=== PATIENT | female | born 1950 | race Caucasian/White ===

== ENCOUNTER → 2023-09-02 | Outpatient (CLI) | payer MEDICARE ==
--- NOTE | 2023-09-02 20:58 | XR ---
EXAMINATION TYPE: XR finger LT DATE OF EXAM: 09/02/2023 Comparison: None TECHNIQUE: 2 views cone-down onto the index finger Clinical History: 73-year-old female pain after [id number] LIF INJURY Findings: There is a 7 mm long splinter of metal coursing in the AP dimension at the tip of the index finger so ft tissues probably abutting the underlying tuft total bone. Moderate degenerative change DIP joint. Advanced osteoarthritic change first CMC joint at the base of the thumb. Impression: A 7 mm long metal splinter embedded within the soft tissues at the tip of the index finger. Probably abutting the underlying bone.
== END | disposition home or self-care (01) ==
LOC: RADXRYALE 13:15
PROVIDERS: ATTEND Internal Medicine
DX: S61.241A Puncture wound with foreign body of left index finger without damage to nail, initial encounter (principal)

== ENCOUNTER 2023-09-08 12:38 | Day surgery (SDC) | payer MEDICARE ==
--- NOTE | 2023-09-07 12:33 | P.HPOR ---
History of Present Illness H&P Date: 09/07/23 Subjective: This is a 73 year old female that presents today for initial evaluation regarding a left index finger injury that occurred on 09/02/2023 when she was using a sewing machine and the sewing needle pierced the dorsal aspect of the finger, going through the nail plate to the bone and then broke off. She was seen at her primary care physician's office and then referred to orthopedics for further evaluation. She states she can feel the tip in the soft tissue of the fingertip. She denies any numbness or tingling. Physical Examination: LUE: AIN/PIN/Radial/Ulnar/Median motor intact. Radial/Ulnar/Median SILT. 2+/4 Radial/Ulnar pulses palpated. 5/5 APB, 5/5 FDI. Negative Finkelsteins, negative CMC grind, negative Durkan's compression. Entry point wound seen through the nail plate on the dorsal aspect of the index finger. Imaging: X-Rays of the left index finger reviewed from 09/02/23 demonstrates a 7mm needle located in the subcutaneous tissues of the volar pulp of the left small finger that penetrates the volar and dorsal cortex of the tip of the distal phalanx. Eye of the needle is lodged in the distal phalanx Impression: 1.) Left index finger foreign body. Plan: Diagnosis and treatment options were discussed with the patient. She would like to proceed with left index foreign body removal with potential nail plate removal. Risks and benefits of surgery including bleeding, infection, damage to surrounding tissue, need for further surgery, residual numbness were discussed and the patient wished to go forward with surgery. The patient was agreeable with this plan. CC: Tierra Negrete M.D. -Dallas Rocha DO Orthopedic Hand/Upper Extremity Surgeon Past Medical History Past Medical History: Hyperlipidemia, Hypertension Additional Past Medical History / Comment(s): Takotsubo syndrome, gets eye injections every 2 months for macular degeneration History of Any Multi-Drug Resistant Organisms: None Reported Past Surgical History: Appendectomy, Heart Catheterization, Orthopedic Surgery, Tubal Ligation Additional Past Surgical History / Comment(s): lft shoulder repair, Past Anesthesia/Blood Transfusion Reactions: No Reported Reaction Smoking Status: Never smoker - Past Family History Mother Family Medical History: No Reported History Medications and Allergies Home Medications Medication Instructions Recorded Confirmed Type Sertraline [Zoloft] 100 mg PO DAILY 04/22/15 09/07/23 History Simvastatin 1 tab PO DAILY 04/22/15 09/07/23 History Losartan Potassium 50 mg PO DAILY 09/07/23 09/07/23 History Sulfamethoxazole/Trimethoprim 1 tab PO Q12H 09/07/23 09/07/23 History [Sulfamethoxazole-Tmp Ds Tablet] Allergies Allergy/AdvReac Type Severity Reaction Status Date / Time metal Allergy Rash/Hives Uncoded 09/07/23 08:55 Physical Examination Osteopathic Statement: *. No significant issues noted on an osteopathic structural exam other than those noted in the History and Physical/Consult.
[~2023-09-08 12:38] MED LIST: HYDROmorphone 0.5 MG/0.5 ML SYRINGE IVP PRN; LACTATED RINGERS 1,000 ML IV SCH
[2023-09-08 13:46] VITALS: RESP 16; TEMP 97
[2023-09-08] MEDS ORDERED: fentaNYL (PF) 50 MCG/ML 2 ML AMP ONE (14:02)
[2023-09-08] MEDS ORDERED: MIDAZOLAM 2 MG/2 ML VIAL ONE (14:02)
[2023-09-08] MEDS ORDERED: PROPOFOL 10 MG/ML 20 ML VIAL IV ONE (14:02)
[2023-09-08] MEDS ORDERED: BUPIVACAINE (PF) 0.5% 30 ML VIAL SQ ONE (14:09)
[2023-09-08] MEDS ORDERED: LIDOCAINE 1% INJ 10MG/ML (20 ML MDV) SQ ONE (14:09)
--- NOTE | 2023-09-08 14:22 | P.OP ---
Date of Procedure: 09/08/23 Preoperative Diagnosis: Left index finger foreign body Postoperative Diagnosis: Left index finger foreign body Procedure(s) Performed: Left index finger foreign body excision from bone. Anesthesia: MAC Surgeon: Dallas Rocha Anaesthesiologist #1: Paul Zuniga Estimated Blood Loss (ml): 0 Pathology: none sent Condition: stable Disposition: PACU Description of Procedure: This is a 73 year old female who presents today for a left index finger foreign body removal from her distal phalanx bone. Risks and benefits of surgery were discussed with the patient including bleeding, damage to surrounding tissue, infection, need for further surgery as well as risks of anesthesia including pulmonary embolism and even and the patient wished to proceed with surgical intervention. The patient was seen in the pre-operative area by myself. Consent and H&P were completed and updated. The correct extremity was marked in the pre-operative area by myself and all other questions were answered. Operative Narrative: The patient was brought to the operating room by the department of anesthesia. They remained on the portable stretcher and a rolling hand table was brought to the side of the operative extremity. Pre-operative time out was p erformed indicating the correct patient, procedure and laterality. All in the room agreed. Pre-operative antibiotics were given prior to skin incision. A 50:50 mixture of 0.5% bupivicaine and 1% lidocaine was used to perform a digital block of the left index finger. The patient was then drifted off to sleep by the department of anesthesia. A nonsterile tourniquet was then applied to the operative extremity and the left upper extremity was then prepped and draped in normal sterile fashion. The operative extremity was the exsanguinated with an esmarch bandage and the tourniquet was inflated to 250mmHg. Longitudinal incison was made on the volar aspect of the pulp of the left index finger. Blunt dissection was taken down through subcutaneous tissues. The tip of the sewing needle was then identified and was able to be successfully excised with longitudinal tracture with a hemostat without complication. The wound was then closed with 4-0 nylon suture. Soft dressing consisting of adaptic, 4x4s and loosely applied coban was applied. Tourniquet was let down and the hand had immediate perfusion. Paul BUITRAGO was present to assist in the procedure. The patient was then woken by the department of anesthesia and transferred to PACU in stable condition. Dallas Rocha D.O. Orthopedic Hand/Upper Extremity Surgeon
[2023-09-08 15:05] VITALS: BP 127/72; PULSE 68
== END 2023-09-08 15:02 | disposition home or self-care (01) ==
LOC: OR 12:38
PROVIDERS: ATTEND Orthopaedic Surgery Hand Surgery
DX: S60.452A Superficial foreign body of right middle finger, initial encounter (principal); I10 Essential (primary) hypertension; E78.5 Hyperlipidemia, unspecified; Z90.49 Acquired absence of other specified parts of digestive tract; X58.XXXA Exposure to other specified factors, initial encounter; Z98.51 Tubal ligation status; Z98.890 Other specified postprocedural states; Z79.899 Other long term (current) drug therapy
CPT/HCPCS: 20520; J2250; J0690; J2001; J3010; J2704; J0665

== ENCOUNTER 2024-04-25 16:21 | Emergency (ER) | payer MEDICARE ==
[2024-04-25 16:26] VITALS: RESP 16
--- NOTE | 2024-04-25 17:15 | ED ---
Chest Pain HPI - General Source: patient, family, RN notes reviewed Mode of arrival: wheelchair Limitations: no limitations <Lillian Barrios - Last Filed: 04/25/24 17:13> - History of Present Illness MD Complaint: chest pain Onset/Timin -: days(s) Onset: during rest Pain Location: substernal Pain Radiation: none Severity: moderate Quality: dull Consistency: intermittent Improves With: nothing Worsens With: nothing Treatments Prior to Arrival: none <Bladimir Chavez - Last Filed: 05/09/24 07:21> - General Chief Complaint: Chest Pain Stated Complaint: Chest Pain,SOB Time Seen by Provider: 04/25/24 16:40 - History of Present Illness Initial Comments: Quick Note- this is a 73-year-old female presents emergency department chief complaint of chest heaviness that is been intermittent over the past 3 days. She endorses dizziness, palpitations, and dyspnea on exertion since this time. Denies history of heart attack, stroke, clots. She states that she was diagnosed with Takotsubo cardiomyopathy in 2008. Follows with Dr[address] Correia. (Lillian Barrios) - Related Data Home Medications Medication Instructions Recorded Confirmed Sertraline [Zoloft] 100 mg PO DAILY 04/22/15 01/19/24 Simvastatin 1 tab PO DAILY 04/22/15 01/19/24 Losartan Potassium 50 mg PO DAILY 09/07/23 01/19/24 Aspirin [Adult Low Dose Aspirin EC] 81 mg PO DAILY 01/17/24 01/19/24 Vit C/E/Zn/Coppr/Lutein/Zeaxan 1 tab PO DAILY 01/17/24 01/19/24 [Preservision Areds 2 Chew Tab] Allergies Allergy/AdvReac Type Severity Reaction Status Date / Time metal Allergy Rash/Hives Uncoded 01/19/24 12:07 Review of Systems ROS Other: All systems not noted in ROS Statement are negative. <Lillian Barrios - Last Filed: 04/25/24 17:13> ROS Other: All systems not noted in ROS Statement are negative. Constitutional: Denies: fever, chills Respiratory: Denies: cough, dyspnea, wheezes, hemoptysis Cardiovascular: Reports: chest pain. Denies: palpitations, dyspnea on exertion, orthopnea, edema Gastrointestinal: Denies: abdominal pain, nausea, vomiting, diarrhea Genitourinary: Denies: dysuria, hematuria Musculoskeletal: Denies: back pain Skin: Denies: rash Neurological: Denies: headache, weakness <Bladimir Chavez - Last Filed: 05/09/24 07:21> ROS Statement: Those systems with pertinent positive or pertinent negative responses have been documented in the HPI. EKG Findings - EKG Results: EKG: interpreted by ERMD, sinus rhythm (Rate 76 bpm) - Blocks, Filion, Hypertrophy, ST Abn: AV and intraventricular conduction: left anterior fascicular block QRS axis and voltage: pulmonary disease - MD, Pacemaker, Normal: Myocardial infarction: septal MD (old age or indeterminate) <AlinesydneyBladimir - Last Filed: 05/09/24 07:21> Past Medical History Past Medical History: Eye Disorder, Hyperlipidemia, Hypertension Additional Past Medical History / Comment(s): Takotsubo syndrome, gets eye injections every 2 months for macular degeneration History of Any Multi-Drug Resistant Organisms: None Reported Past Surgical History: Appendectomy, Heart Catheterization, Orthopedic Surgery, Tubal Ligation Additional Past Surgical History / Comment(s): lft shoulder repair,colonoscopy Past Anesthesia/Blood Transfusion Reactions: No Reported Reaction Additional Past Anesthesia/Blood Transfusion Reaction / Comment(s): no blood transfusion Past Psychological History: Anxiety, Depression Smoking Status: Never smoker - Past Family History Mother Family Medical History: No Reported History <Lillian Barrios - Last Filed: 04/25/24 17:13> General Exam Limitations: no limitations <Lillian Barrios - Last Filed: 04/25/24 17:13> Limitations: no limitations General appearance: alert, in no apparent distress Head exam: Present: atraumatic, normocephalic Eye exam: Present: normal appearance. Absent: scleral icterus, conjunctival injection Neck exam: Present: normal inspection Respiratory exam: Present: normal lung sounds bilaterally. Absent: respiratory distress, wheezes, rales, rhonchi, stridor, accessory muscle use Cardiovascular Exam: Present: regular rate, normal rhythm, normal heart sounds, other (There is occasional dropped beat on auscultation). Absent: systolic murmur, diastolic murmur, rubs, gallop GI/Abdominal exam: Present: soft. Absent: distended, tenderness, guarding, rebound, rigid, mass Extremities exam: Present: normal inspection, normal capillary refill. Absent: pedal edema, calf tenderness Back exam: Present: normal inspection. Absent: CVA tenderness (R), CVA tenderness (L) Neurological exam: Present: alert Skin exam: Present: warm, dry, intact, normal color. Absent: rash <Bladimir Chavez - Last Filed: 05/09/24 07:21> - General Exam Comments Initial Comments: Visual Physical Exam Vital signs reviewed General: Well-appearing, nontoxic, no acute distress. Head: Normocephalic, atraumatic Eyes: PERRLA, EOMI ENT: Airway patent Chest: Nonlabored breathing Skin: No visual rash, normal skin tone Neuro: Alert and oriented 3 Musculoskeletal: No gross abnormalities (Lillian Barrios) Course Vital Signs 04/25/24 04/25/24 16:24 19:57 Temperature 98.7 F 98.5 F Pulse Rate 80 76 Respiratory 16 16 Rate Blood Pressure 158/84 160/73 O2 Sat by Pulse 99 99 Oximetry Chest Pain MDM <Lillian Barrios - Last Filed: 04/25/24 17:13> <Bladimir Chavez - Last Filed: 05/09/24 07:21> - MDM I completed the quick note portion of this chart signed Lillian Barrios PA-C (Lillian Barrios) The patient had chest x-ray that I interpreted as negative for acute infiltrate, pneumothorax, congestive heart failure Was pt. sent in by a medical professional or institution ([facility], MAINTENANCE SERVICE SUPERVISOR, urgent care, hospital, or correction...) When possible be specific @ -[No] Did you speak to anyone other than the patient for history (EMS, parent, family, police, friend...)? What history was obtained from this source @ -[No] Did you review nursing and triage notes (agree or disagree)? Why? @ -[I reviewed and agree with nursing and triage notes] Were old charts reviewed (outside hosp., previous admission, EMS record, old EKG, old radiological studies, urgent care reports/EKG's, correction records)? Report findings @ -[No old charts were reviewed] Differential Diagnosis (chest pain, altered mental status, abdominal pain women, abdominal pain men, vaginal bleeding, weakness, fever, dyspnea, syncope, headache, dizziness, GI bleed, back pain, seizure, CVA, palpatations, mental health, musculoskeletal)? @ -[Differential Chest Pain: Stable Angina, Unstable Angina, STEMI, NSTEMI Aortic Dissection, Pneumothorax, Musculoskeletal, Esophageal Spasm GERD, Cholecystitis, Pancreatitis, Zoster, this is not meant to be an all-inclusive list. EKG interpreted by me (3pts min.). @ -[I interpreted as above] X-rays interpreted by me (1pt min.). @ -[I interpreted as above CT interpreted by me (1pt min.). @ -[None done] U/S interpreted by me (1pt. min.). @ -[None done] What testing was considered but not performed or refused? (CT, X-rays, U/S, labs)? Why? @ -[None] What meds were considered but not given or refused? Why? @ -[None] Did you discuss the management of the patient with other professionals (professionals i.e. , PA, MAINTENANCE SERVICE SUPERVISOR, lab, RT, psych nurse, psychologist social, toolsmith, teacher, home school liaison officer, correctional case manager)? Give summary @ -[No] Was smoking cessation discussed for >3mins.? @ -[No] Was critical care preformed (if so, how long)? @ -[No] Were there social determinants of health that impacted care today? How? (Homelessness, low income, unemployed, alcoholism, drug addiction, transportation, low edu. Level, literacy, decrease access to med. care, [facility], rehab)? @ -[No] Was there de-escalation of care discussed even if they declined (Discuss DNR or withdrawal of care, Hospice)? DNR status @ -[No] What co-morbidities impacted this encounter? (DM, HTN, Smoking, COPD, CAD, Cancer, CVA, ARF, Chemo, Hep., AIDS, mental health diagnosis, sleep apnea, morbid obesity)? @ -[None] Was patient admitted / discharged? Hospital course, mention meds given and route, prescriptions, significant lab abnormalities, going to OR and other pertinent info. @ -[hospital course] Undiagnosed new problem with uncertain prognosis? @ -[No] Drug Therapy requiring intensive monitoring for toxicity (Heparin, Nitro, Insulin, Cardizem)? @ -[No] Were any procedures done? @ -[No] Diagnosis/symptom? @ -[Acute chest pain Acute, or Chronic, or Acute on Chronic? @ -[Acute Uncomplicated (without systemic symptoms) or Complicated (systemic symptoms)? @ -[default] Side effects of treatment? @ -[No] Exacerbation, Progression, or Severe Exacerbation? @ -[No] Poses a threat to life or bodily function? How? (Chest pain, USA, MD, pneumonia, PE, COPD, DKA, ARF, appy, cholecystitis, CVA, Diverticulitis, Homicidal, Suicidal, threat to staff... and all critical care pts) @ -[No] (Bladimir Chavez) Disposition <Lillian Barrios - Last Filed: 04/25/24 17:13> Is patient prescribed a controlled substance at d/c from ED?: No <Bladimir Chavez - Last Filed: 05/09/24 07:21> Clinical Impression: Chest pain Disposition: HOME SELF-CARE Condition: Good Instructions (If sedation given, give patient instructions): Chest Pain (ED) Additional Instructions: As we discussed, follow-up with your acid correction hand as soon as possible. Return here immediately if you have a recurrence of symptoms or any new symptoms develop. Referrals: Tierra Negrete MD [Primary Care Provider] - 1-2 days
[2024-04-25 17:18] LABS: Basophils # (A) 0.1 k/uL (0-0.2); Basophils % (A) 1 %; Eosinophils # (A) 0.1 k/uL (0-0.7); Eosinophils % (A) 1 %; HCT 41.5 % (34.0-46.0); Lymphocytes # (A) 1.5 k/uL (1.0-4.8); Lymphocytes % (A) 22 %; MCH 27.4 pg (25.0-35.0); MCHC 31.3 g/dL (31.0-37.0); MCV 87.4 fL (80.0-100.0); Monocytes # (A) 0.4 k/uL (0-1.0); Monocytes % (A) 5 %; Neutrophils # (A) 4.8 k/uL (1.3-7.7); Neutrophils % (A) 69 %; Platelet Count 170 k/uL (150-450); RBC 4.75 m/uL (3.80-5.40); RDW 14.6 % (11.5-15.5); WBC 6.9 k/uL (3.8-10.6)
[2024-04-25 17:27] LABS: ALT 17 U/L (4-34); AST 27 U/L (14-36); African American GFR (CKD) >90 (>60 ml/min/1.73 sqM); Albumin 4.5 g/dL (3.5-5.0); Alkaline Phosphatase 100 U/L (38-126); Anion Gap 10 mmol/L; Blood Urea Nitrogen 16 mg/dL (7-17); Calcium 9.5 mg/dL (8.4-10.2); Carbon Dioxide 20 mmol/L (22-30); Chloride 110 mmol/L (98-107); Glucose 89 mg/dL (74-99); Magnesium 2.2 mg/dL (1.6-2.3); Non-African American GFR(CKD) 79 (>60 ml/min/1.73 sqM); Potassium 4.1 mmol/L (3.5-5.1); Sodium 140 mmol/L (137-145); Total Bilirubin 0.7 mg/dL (0.2-1.3); Total Protein 7.1 g/dL (6.3-8.2)
[2024-04-25 17:49] LABS: INR 0.9 (<1.2); Prothrombin Time 10.5 sec (10.0-12.5)
--- NOTE | 2024-04-25 17:52 | XR ---
EXAMINATION TYPE: XR chest 2V DATE OF EXAM: 04/25/2024 COMPARISON: None HISTORY: 73-year-old female with chest pain TECHNIQUE: PA and lateral views FINDINGS: Heart upper limits of normal in size. Aorta and pulmonary vasculature within normal limits. No consol idation or pleural effusion. IMPRESSION: Borderline heart size. No acute process seen.
[2024-04-25 20:08] VITALS: BP 160/73; PULSE 76; TEMP 98.5
== END 2024-04-25 20:25 | disposition home or self-care (01) ==
LOC: EC 16:21
DX: R07.9 Chest pain, unspecified (principal); I44.4 Left anterior fascicular block; Z91.048 Other nonmedicinal substance allergy status
CPT/HCPCS: 36415; 71046; 80053; 83735; 84484; 85025; 85610; 85730; 93005; 99285

== ENCOUNTER 2025-03-22 08:18 | Day surgery (SDC) | payer MEDICARE ==
[2025-03-22 10:01] VITALS: BP 159/88; PULSE 69; RESP 16; TEMP 98.3
--- NOTE | 2025-03-22 13:45 | US ---
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 COMPARISON: None. ATTENDING: Dr. Marino PROCEDURE: Informed consent was obtained. The risks and benefits of the procedure were discussed with the patien t. The site was marked. Timeout procedure was performed Ultrasound imaging demonstrates a predominantly solid slightly hypoechoic well-defined wider greater than tall 3.3 x 1.7 x 2.1 cm solid nodule without echogenic foci in the lower pole right thyroid lobe . The patient was prepped, draped in the usual sterile fashion, and locally anesthetized with 1% lidoca ine. Six fine needle aspiration were then performed with a 25 gauge needle. Samples were sent to the pathology department for further analysis. Patient tolerated the procedure without incident and was sent home in stable condition. IMPRESSION: Successful ultrasound guided fine needle aspiration. Intermediate to borderline high index of suspicion noted at time of procedure. [facility], , 03/22/2025 1:42 PM
== END 2025-03-22 09:45 | disposition home or self-care (01) ==
LOC: RADPROMAIN 08:18
PROVIDERS: ATTEND Internal Medicine
DX: E04.1 Nontoxic single thyroid nodule (principal)
CPT/HCPCS: 10005; 88173; 88305